=== PATIENT | male | born 1945 | race Caucasian/White ===

== ENCOUNTER 2016-07-24 11:40 | Outpatient (CLI) | payer MEDICARE ==
[2016-07-24 12:23] LABS: Mean Corpuscular HGB CONC 33.4 g/dL (32.0-36.0); Mean Corpuscular Hemoglobin 28.6 pg (27.0-31.0); Mean Corpuscular Volume 85.7 fl (80.0-94.0); Mean Platelet Volume 8.6 fL (7.4-10.4); Platelet Count 249 thou/uL (130-400); RBC Distribution Width 12.6 % (11.5-14.5); Red Blood Cell (RBC) Count 4.19 mill/uL (4.70-6.10); White Blood Cell (WBC) Count 9.1 thou/uL (4.8-10.8)
[2016-07-24 13:51] LABS: %Lymphocytes 26.9 % (21.0-51.0); %Monocytes 6.9 % (0.0-10.0); %Neutrophils 61.9 % (42.0-75.0)
[2016-07-24 13:52] LABS: %Basophils 0.9 % (0.0-1.0); %Eosinophils 3.5 % (0.0-10.0)
[2016-07-24 13:54] LABS: #Basophils 0.1 thou/uL (0.0-0.2); #Eosinphils 0.3 thou/uL (0.0-0.7); #Lymphocytes 2.5 thou/uL (1.20-3.40); #Monocytes 0.6 thou/uL (0.11-0.59); #Neutrophils 5.7 thou/uL (1.40-6.50)
== END 2016-07-24 11:41 | disposition home or self-care (01) ==
LOC: NAV LABSP 11:40
PROVIDERS: ATTEND Family Medicine
DX: L89.150 Pressure ulcer of sacral region, unstageable (principal)
CPT/HCPCS: 85025; 85652; 86140

== ENCOUNTER 2024-03-16 06:01 | Emergency (ER) | payer OTHER, MEDICARE | END 2024-03-16 07:36 | disposition home or self-care (01) | LOC: NAV ERS 06:01 | DX: S76.311A Strain of muscle, fascia and tendon of the posterior muscle group at thigh level, right thigh, initial encounter (principal); S40.011A Contusion of right shoulder, initial encounter; E11.9 Type 2 diabetes mellitus without complications; I10 Essential (primary) hypertension; W01.0XXA Fall on same level from slipping, tripping and stumbling without subsequent striking against object, initial encounter; Y93.89 Activity, other specified; Y92.410 Unspecified street and highway as the place of occurrence of the external cause | CPT/HCPCS: 99283 ==

== ENCOUNTER 2024-04-05 15:59 | Outpatient (CLI) | payer MEDICARE | END 2024-04-05 16:00 | disposition home or self-care (01) | LOC: NAV RAD 15:59 | PROVIDERS: ATTEND Family Medicine | DX: Z11.1 Encounter for screening for respiratory tuberculosis (principal) | CPT/HCPCS: 71046 ==